=== PATIENT | male | born 1965 | race Caucasian/White ===

== ENCOUNTER 2025-08-04 10:41 | Emergency (ER) | payer SELFPAY ==
[2025-08-04] MEDS ORDERED: Sodium Chloride 0.9% 10 ML Syringe FLUSH PRN (11:03)
== END 2025-08-04 13:40 | disposition home or self-care (01) ==
LOC: JD.ED 10:41
DX: Z76.0 Encounter for issue of repeat prescription (principal); I10 Essential (primary) hypertension
CPT/HCPCS: 99283